=== PATIENT | male | born 1985 | race Caucasian/White ===

== ENCOUNTER 2019-02-22 10:24 | Emergency (ER) | payer MEDICAID ==
[~2019-02-22] VITALS: Ht 170.2 cm; Wt 89.4 kg
[2019-02-22 11:06] VITALS: BP 122/74
--- NOTE | 2019-02-22 11:23 | NUR ---
33 Y MALE BIB FAMILY C/O RT SIDED LOWER BACK PAIN ONGOING. 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 PAIN 08/11. DENIES PAINFUL URINATION. VSS AT THIS TIME. [id number]. BED IS DOWN, LOCKED, BED RAIL X 1, ERMD NOTIFIED. PMH- DENIES
--- NOTE | 2019-02-22 11:56 | NUR ---
Patient being evaluated by DR WIN at bedside.
[2019-02-22] MEDS ORDERED: LIDOCAINE 1% 500 MG/50 ML VIAL INJ SCH (12:05)
[2019-02-22] MEDS ORDERED: LIDOCAINE MPF 1% 5mL VIAL ONE (12:17)
[2019-02-22 13:48] VITALS: BP 111/66
== END 2019-02-22 13:48 | disposition home or self-care (01) ==
LOC: MED 10:24
DX: S39.012A Strain of muscle, fascia and tendon of lower back, initial encounter (principal); X50.0XXA Overexertion from strenuous movement or load, initial encounter; Y93.89 Activity, other specified; Y92.89 Other specified places as the place of occurrence of the external cause; Y99.0 Civilian activity done for income or pay
CPT/HCPCS: 99283; J2001